=== PATIENT | male | born 2000 | race Caucasian/White ===

== ENCOUNTER 2025-01-16 17:21 | Emergency (ER) | payer OTHER ==
--- NOTE | 2025-01-16 17:37 | ED ---
Male Urogenital HPI - General Source: patient, RN notes reviewed Mode of arrival: ambulatory Limitations: no limitations <Nolan Coello - Last Filed: 01/16/25 17:37> <Seb Penaloza - Last Filed: 01/16/25 19:26> - General Chief complaint: Urogenital Stated complaint: Urogenital Time Seen by Provider: 01/16/25 17:37 - History of Present Illness Initial comments: Quick note: 24-year male presented the ER for evaluation of left testicular pain. Is been ongoing for the past 4 days. History of vasectomy. Denies any fevers, chills, urinary complaints or abnormal penile discharge. (Nolan Coello) - Related Data Allergies Allergy/AdvReac Type Severity Reaction Status Date / Time No Known Allergies Allergy Verified 01/16/25 17:36 Review of Systems ROS Other: All systems not noted in ROS Statement are negative. <Nolan Coello - Last Filed: 01/16/25 17:37> ROS Other: All systems not noted in ROS Statement are negative. <Seb Penaloza - Last Filed: 01/16/25 19:26> ROS Statement: Those systems with pertinent positive or pertinent negative responses have been documented in the HPI. Past Medical History Past Medical History: No Reported History Additional Past Surgical History / Comment(s): vasectomy Past Psychological History: No Psychological Hx Reported Past Alcohol Use History: None Reported Past Drug Use History: None Reported <Nolan Coello - Last Filed: 01/16/25 17:37> General Exam Limitations: no limitations <Nolan Coello - Last Filed: 01/16/25 17:37> - General Exam Comments Initial Comments: Visual Physical Exam Vital signs reviewed General: Well-appearing, nontoxic, no acute distress. Head: Normocephalic, atraumatic Eyes: PERRLA, EOMI ENT: Airway patent Chest: Nonlabored breathing Skin: No visual rash, normal skin tone Neuro: Alert and oriented 3 Musculoskeletal: No gross abnormalities (Nolan Coello) Course Vital Signs 01/16/25 17:33 Temperature 97.9 F Pulse Rate 73 Respiratory 16 Rate Blood Pressure 153/90 O2 Sat by Pulse 97 Oximetry Medical Decision Making <Nolan Coello - Last Filed: 01/16/25 17:37> - Medical Decision Making I performed the quick note portion of this chart. Electronically signed by Nolan Coello PA-C (Nolan Coello) Disposition <Nolan Coello - Last Filed: 01/16/25 17:37> Is patient prescribed a controlled substance at d/c from ED?: No Time of Disposition: 19:30 <Seb Penaloza - Last Filed: 01/16/25 19:26> Clinical Impression: Testicular pain Disposition: HOME SELF-CARE Condition: Good Instructions (If sedation given, give patient instructions): Scrotal Pain (ED), Testicle Pain (ED) Referrals: None,Stated [Primary Care Provider] - 1-2 days
--- NOTE | 2025-01-16 18:21 | US ---
EXAMINATION TYPE: US scrotum with doppler. DATE OF EXAM: 01/16/2025 COMPARISON: NONE CLINICAL INDICATION: Male, 24 years old with history of Left testicular pain; patient states left art ticular pain for 4 days. states slightly swollen and tender. pain 11/16 TECHNIQUE: Grayscale, color Doppler and spectral Doppler imaging of the scrotum. FINDINGS: EXAM MEASUREMENTS: TESTICLES: Right Testicle: 4.9 x 2.5 x 2.8 cm Left Testicle: 4.7 x 2.6 x 2.6 cm EPIDIDYMIS HEAD: Right Epididymis: 1.3 x 0.8 x 1.3 cm. There are multiple small anechoic areas within, largest measur ing 0.3 x 0.3 x 0.2cm Left Epididymis: 1.6 x 1.0 x 1.5 cm There is an anechoic area within measuring 0.2 x 0.2 x 0.3cm. ? increased vascularity compared to the right side Doppler performed to assess for testicular vascularity; good bilateral color flow and spectral wavefo johan are seen. There is no evidence of testicular torsion. Presence of hydroceles: not seen Presence of varicoceles: bilateral measuring up to 0.26cm IMPRESSION: 1. No evidence for acute process. 2. No testicular torsion. Normal color flow present. 3. Varicoceles present [facility], , 01/16/2025 6:19 PM
[2025-01-16 19:52] VITALS: BP 135/76; PULSE 58; RESP 18; TEMP 98.1
== END 2025-01-16 19:51 | disposition home or self-care (01) ==
LOC: EC 17:21
DX: N50.812 Left testicular pain (principal)
CPT/HCPCS: 76870; 93975; 99284